=== PATIENT | female | born 1990 | race Caucasian/White ===

== ENCOUNTER 2019-03-31 07:00 | Day surgery (SDC) | payer OTHER ==
[~2019-03-31 07:00] MED LIST: AMOX1TAB12 PO; FLAGYL500MG PO; IBUPROFEN800 MG PO; MONONESSA 28 T1 EACH PO; ULTRACET PO
[2019-03-31] MEDS ORDERED: ULTRACET PO (12:25)
[2019-03-31] MEDS ORDERED: IBUPROFEN400 MG PO (12:25)
== END 2019-03-31 13:00 | disposition home or self-care (01) ==
LOC: CIR.AMB 07:00 → O/R 07:13 → SURH 07:13 → CIR.AMB 09:00 → SURH 11:30 → EDSTATUS 11:30 → CIR.AMB 11:30 → O/R 16:50
DX: D27.1 Benign neoplasm of left ovary (principal); D27.0 Benign neoplasm of right ovary; N73.6 Female pelvic peritoneal adhesions (postinfective)